=== PATIENT | male | born 1955 | race Caucasian/White ===

== ENCOUNTER 2024-04-17 22:51 | Emergency (ER) | payer OTHER, MEDICARE ==
[2024-04-17 22:57] VITALS: BMI 19.2
[2024-04-17] MEDS ORDERED: FAMOTIDINE 20 MG/50 ML IVPB 20 MG/50 ML MG IVPB ONE (23:35)
[2024-04-17] MEDS ORDERED: ACETAMINOPHEN INJECTION 100 ML IVPB ONE (23:35)
[2024-04-17] MEDS: ACETAMINOPHEN 1000 MG/100 ML BAG IVPB ONE (23:52)
[2024-04-17] MEDS ORDERED: morphine SULFATE 4 MG/ML VIAL ONE (23:56)
[2024-04-17 23:57] LABS: HEMATOCRIT 37.5 % (35.4-49); HEMOGLOBIN 12.3 GM/dL (11.7-16.9); MCH 28.8 pg (25.7-33.7); MCHC 32.8 g/dl (32.0-35.9); MEAN CELL VOLUME 88.1 fl (80-96); MEAN PLT VOLUME 8.1 fl (7.5-11.1); PLATELET COUNT 282 10^3/uL (134-434); RBC 4.26 M/mm3 (4.00-5.60); RDW 18.3 % (11.9-15.9); WHITE BLOOD COUNT 23.8 K/mm3 (4.0-10.0)
[2024-04-18] MEDS: morphine SULFATE 4 MG/ML VIAL IVPUSH ONE (00:02)
[2024-04-18] MEDS: FAMOTIDINE 20 MG/50 ML IVPB 20 MG/50 ML MG IVPB ONE (00:03)
[2024-04-18 00:15] LABS: POTASSIUM 3.5 mmol/L (3.5-5.1)
[2024-04-18 00:18] LABS: ALBUMIN 3.1 g/dl (3.4-5.0); BLOOD UREA NITROGEN 9.6 mg/dL (7-18); CALCIUM 8.4 mg/dL (8.5-10.1)
[2024-04-18 00:21] LABS: CREATININE 0.9 mg/dL (0.55-1.3)
[2024-04-18 00:23] LABS: BILIRUBIN,TOTAL 0.4 mg/dL (0.2-1); TOT PROT 6.1 g/dl (6.4-8.2)
[2024-04-18] MEDS ORDERED: PIPERACILLIN/TAZOB 3.375 GM 3.375 GM/50 ML BAG IVPB ONE (00:55)
[2024-04-18] MEDS: PIPERACILLIN/TAZOB 3.375 GM 3.375 GM in DEXTROSE 5%-WATER - 50 ML IVPB ONE (01:01)
[2024-04-18 01:24] LABS: INR 1.23 (0.83-1.09); PROTHROMBIN TIME (PATIENT) 14.1 SEC (9.7-13.0)
[2024-04-18 01:27] LABS: ACTIVATED PTT 24.2 SECONDS (25.2-36.5)
[2024-04-18 05:57] VITALS: BP 152/81; PULSE 74; RESP 20; TEMP 98.4
== END 2024-04-18 06:45 | disposition short-term general hospital (02) ==
LOC: JER 22:51
PROC: 3E033GC Introduction of Other Therapeutic Substance into Peripheral Vein, Percutaneous Approach (ICD-10-PCS; principal; 2024-04-17)
PROC: 3E033NZ Introduction of Analgesics, Hypnotics, Sedatives into Peripheral Vein, Percutaneous Approach (ICD-10-PCS; 2024-04-17)
PROC: 3E033NZ Introduction of Analgesics, Hypnotics, Sedatives into Peripheral Vein, Percutaneous Approach (ICD-10-PCS; 2024-04-17)
PROC: 3E03329 Introduction of Other Anti-infective into Peripheral Vein, Percutaneous Approach (ICD-10-PCS; 2024-04-18)
DX: R10.13 Epigastric pain (principal); K63.1 Perforation of intestine (nontraumatic); K52.9 Noninfective gastroenteritis and colitis, unspecified; Z20.822 Contact with and (suspected) exposure to COVID-19
CPT/HCPCS: 0241U-QW; 36415; 74177-TC; 76705-TC; 80053; 83605; 83690; 84484; 85025; 85610; 85730; 86850; 86900; 86901; 93005; 93010; 99285-25; J0131; Q9967